=== PATIENT | female | born 1995 | race Caucasian/White ===

== ENCOUNTER 2020-11-21 14:45 | Emergency (ER) | payer OTHER ==
[~2020-11-21] VITALS: Ht 157.5 cm; Wt 79.4 kg
[2020-11-21] MEDS ORDERED: OMEPRAZOLE MAGN20 MG PO (15:17)
== END 2020-11-21 18:10 | disposition home or self-care (01) ==
LOC: ER 14:45
DX: S93.402A Sprain of unspecified ligament of left ankle, initial encounter (principal); X50.0XXA Overexertion from strenuous movement or load, initial encounter; Y93.89 Activity, other specified; Y92.89 Other specified places as the place of occurrence of the external cause; Y99.8 Other external cause status